=== PATIENT | male | born 2000 | race Native Hawaiian/Other Pacific Islander ===

== ENCOUNTER 2020-03-04 14:31 | Emergency (ER) | payer OTHER ==
[~2020-03-04] VITALS: Ht 175.3 cm; Wt 65.8 kg
[2020-03-04 14:44] VITALS: TEMP 98.7
[2020-03-04 15:22] LABS: PLATELET COUNT 243 K/uL (142-355)
[2020-03-04 15:28] LABS: POTASSIUM 4.3 mmol/L (3.6-5.2)
[2020-03-04 15:55] VITALS: BP 115/63
== END 2020-03-04 15:55 | disposition home or self-care (01) ==
LOC: ED 14:31
PROVIDERS: Hospitalist
DX: J06.9 Acute upper respiratory infection, unspecified (principal); R11.2 Nausea with vomiting, unspecified; Z20.828 Contact with and (suspected) exposure to other viral communicable diseases
CPT/HCPCS: 80048; 85027; 87635; 99283; U00003

== ENCOUNTER 2020-04-23 01:50 | Emergency (ER) | payer OTHER ==
[~2020-04-23] VITALS: Ht 172.7 cm; Wt 72.6 kg
[2020-04-23 02:39] LABS: PLATELET COUNT 242 K/uL (142-355)
[2020-04-23 02:46] LABS: POTASSIUM 3.4 mmol/L (3.6-5.2)
[2020-04-23 02:57] LABS: PARTIAL THROMBOPLASTIN TIME 23.2 SECONDS (24.5-33.6)
[2020-04-23 04:30] VITALS: TEMP 98.4
[2020-04-23 04:58] VITALS: BP 149/99
== END 2020-04-23 05:01 | disposition short-term general hospital (02) ==
LOC: ED 01:50
PROVIDERS: Hospitalist
DX: S02.2XXA Fracture of nasal bones, initial encounter for closed fracture (principal); S02.40DA Maxillary fracture, left side, initial encounter for closed fracture; S02.40CA Maxillary fracture, right side, initial encounter for closed fracture; S02.31XA Fracture of orbital floor, right side, initial encounter for closed fracture; Y00.XXXA Assault by blunt object, initial encounter; Y92.89 Other specified places as the place of occurrence of the external cause
CPT/HCPCS: 36415; 80048; 80320; 85027; 85610; 85730; 90471; 90715; 96360; 96365; 96375; 96376; 99285; J0690; J1170; J1885; J2270; J2405; Q9963

== ENCOUNTER 2021-09-08 06:16 | Emergency (ER) | payer OTHER ==
[~2021-09-08] VITALS: Ht 172.7 cm; Wt 72.6 kg
[2021-09-08 06:16] VITALS: TEMP 97.8
[2021-09-08 06:41] LABS: PLATELET COUNT 281 K/uL (142-355)
[2021-09-08 06:54] LABS: POTASSIUM 3.4 mmol/L (3.6-5.2)
[2021-09-08 07:11] LABS: PARTIAL THROMBOPLASTIN TIME 22.1 SECONDS (24.5-33.6)
[2021-09-08 09:13] VITALS: BP 171/90
== END 2021-09-08 09:45 | disposition short-term general hospital (02) ==
LOC: ED 06:16
PROVIDERS: Hospitalist
PROC: 0T9B70Z Drainage of Bladder with Drainage Device, Via Natural or Artificial Opening (ICD-10-PCS; principal; 2021-09-08)
DX: S06.0X0A Concussion without loss of consciousness, initial encounter (principal); S52.592A Other fractures of lower end of left radius, initial encounter for closed fracture; S32.10XA Unspecified fracture of sacrum, initial encounter for closed fracture; S73.005A Unspecified dislocation of left hip, initial encounter; S00.83XA Contusion of other part of head, initial encounter; S02.2XXA Fracture of nasal bones, initial encounter for closed fracture; E87.6 Hypokalemia; S01.81XA Laceration without foreign body of other part of head, initial encounter; S00.81XA Abrasion of other part of head, initial encounter; Z11.52 Encounter for screening for COVID-19; V57.6XXA Passenger in pick-up truck or van injured in collision with fixed or stationary object in traffic accident, initial encounter; Y92.89 Other specified places as the place of occurrence of the external cause
CPT/HCPCS: 51702; 80053; 80320; 81000; 85027; 85610; 85730; 87635; 90471; 90715; 96360; 96361; 96365; 96375; 96376; 99285; J0690; J1170; J2270; J2405; Q9963; U0003